=== PATIENT | male | born 1975 | race Two or more races ===

== ENCOUNTER → 2020-02-14 14:10 | Outpatient (BNVA) | payer OTHER, SELFPAY | PROVIDERS: PCP Internal Medicine; Referring Provider Internal Medicine; Visit Provider Surgery | DX: Z76.89 Persons encountering health services in other specified circumstances (principal) ==

== ENCOUNTER 2021-08-14 11:07 | Outpatient (REF) | payer OTHER, SELFPAY ==
[2021-08-14 11:20] LABS: MANUAL DIFF FLAG NO
[2021-08-14 11:46] LABS: Basophils Percent Auto 0.6 % (0-2); Eosinophils Absolute Auto 0.1 X10*3/uL (0.0-0.4); Eosinophils Percent Auto 1.7 % (0-4); Hematocrit 45.1 % (42.0-52.0); Hemoglobin 15.1 g/dl (14.0-18.0); Imm Gran Abs Auto 0.02 X10*3/uL (0.00-0.03); Imm Gran Pct Auto 0.3 % (0.0-0.4); Lymphocytes Absolute Auto 1.9 X10*3/uL (1.2-4.9); Lymphocytes Percent Auto 27.3 % (20-40); Mean Corpuscular HGB Conc 33.5 g/dl (31.0-36.0); Mean Corpuscular Volume 89.5 fL (80.0-98.0); Mean Platelet Volume 9.8 fL (9.4-12.4); Monocytes Absolute Auto 0.7 X10*3/uL (0.1-1.2); Monocytes Percent Auto 9.3 % (2-11); Neutrophils Absolute Auto 4.3 x10*3/uL (2.0-8.3); Neutrophils Percent Auto 60.8 % (45-73); Platelet Count 296 X10*3/uL (160-400); Red Blood Count 5.04 X10*6/uL (4.60-5.80); Red Cell Distribution Width 13.1 % (11.0-16.0); White Blood Count 7.1 X10*3/uL (4.8-10.8)
[2021-08-14 12:29] LABS: Alanine Aminotransferase 36 U/L (0-40); Albumin Level 4.4 g/dL (3.5-5.0); Alkaline Phosphatase 90 U/L (39-117); Anion Gap 10 (12-20); Aspartate Amino Transferase 24 U/L (5-37); Bilirubin Total 0.9 mg/dL (0.0-1.0); Blood Urea Nitrogen 10 mg/dL (9-16); Calcium 9.4 mg/dL (8.4-10.2); Carbon Dioxide 30 mmol/L (22-29); Chloride 103 mmol/L (96-108); Cholesterol 184 mg/dL; Estimated Glomerular Filt Rate > 60; Glucose Random 91 mg/dL (60-115); HDL Cholesterol 35 mg/dL; LDL Cholesterol Calculated 132 mg/dl; Sodium 139 mmol/L (135-145); Total Protein 7.6 g/dL (6.5-8.0); Triglycerides 88 mg/dL
== END 2021-08-14 11:08 | disposition home or self-care (01) ==
LOC: HO.LAB 11:07
PROVIDERS: PCP Internal Medicine; Visit Provider Internal Medicine
DX: Z00.00 Encounter for general adult medical examination without abnormal findings (principal); Z13.31 Encounter for screening for depression; M54.89 Other dorsalgia; R13.10 Dysphagia, unspecified
CPT/HCPCS: 36415; 80053; 80061; 85025

== ENCOUNTER 2022-08-16 15:19 | Outpatient (REF) | payer OTHER, SELFPAY ==
[2022-08-16 15:33] LABS: MANUAL DIFF FLAG NO
[2022-08-16 15:49] LABS: Basophils Percent Auto 0.7 % (0-2); Eosinophils Absolute Auto 0.1 X10*3/uL (0.0-0.4); Eosinophils Percent Auto 1.3 % (0-4); Hematocrit 44.6 % (42.0-52.0); Hemoglobin 14.9 g/dl (14.0-18.0); Imm Gran Abs Auto 0.02 X10*3/uL (0.00-0.03); Imm Gran Pct Auto 0.3 % (0.0-0.4); Lymphocytes Absolute Auto 1.8 X10*3/uL (1.2-4.9); Mean Corpuscular HGB Conc 33.4 g/dl (31.0-36.0); Mean Corpuscular Volume 89.9 fL (80.0-98.0); Mean Platelet Volume 9.8 fL (9.4-12.4); Monocytes Absolute Auto 0.6 X10*3/uL (0.1-1.2); Neutrophils Absolute Auto 3.7 x10*3/uL (2.0-8.3); Neutrophils Percent Auto 59.7 % (45-73); Platelet Count 288 X10*3/uL (160-400); Red Blood Count 4.96 X10*6/uL (4.60-5.80); Red Cell Distribution Width 13.6 % (11.0-16.0); White Blood Count 6.1 X10*3/uL (4.8-10.8)
[2022-08-16 16:15] LABS: Alanine Aminotransferase 40 U/L (0-40); Albumin Level 4.4 g/dL (3.5-5.0); Alkaline Phosphatase 91 U/L (39-117); Anion Gap 13 (12-20); Aspartate Amino Transferase 23 U/L (5-37); Bilirubin Total 0.8 mg/dL (0.0-1.0); Blood Urea Nitrogen 11 mg/dL (9-16); Calcium 9.3 mg/dL (8.4-10.2); Carbon Dioxide 27 mmol/L (22-29); Chloride 104 mmol/L (96-108); Cholesterol 202 mg/dL; Estimated Glomerular Filt Rate > 60; Glucose Random 89 mg/dL (60-115); HDL Cholesterol 37 mg/dL; LDL Cholesterol Calculated 147 mg/dl; Potassium 4.6 mmol/L (3.3-5.1); Sodium 139 mmol/L (135-145); Total Protein 7.1 g/dL (6.5-8.0); Triglycerides 93 mg/dL
== END 2022-08-16 15:20 | disposition home or self-care (01) ==
LOC: HO.LAB 15:19
PROVIDERS: PCP Internal Medicine; Visit Provider Internal Medicine
DX: Z00.00 Encounter for general adult medical examination without abnormal findings (principal); M54.9 Dorsalgia, unspecified; Z13.31 Encounter for screening for depression
CPT/HCPCS: 36415; 80053; 80061; 85025

== ENCOUNTER 2023-03-21 09:57 | Day surgery (SDC) | payer OTHER, SELFPAY ==
[2023-03-18 07:06] VITALS: BMI 30.7
[2023-03-21 10:49] VITALS: BP 128/79; PULSE 74; RESP 18; TEMP 36.6; O2SAT 99
[2023-03-21] MEDS: Lactated Ringers 1,000 ML 100 ML IVCONT (10:57)
--- NOTE | 2023-03-21 12:48 | P.BOP_ITS ---
Brief Operative Note Date of Service: 03/21/23 Pre-op diagnosis: Screening Post-op diagnosis: other (Diverticulosis) Procedure: Colonoscopy to the cecum and TI Surgeon: Dash Barajas MD Anesthesia: MAC Was an Neon Glass Bender used for this Procedure?: No Estimated blood loss (mL): 0 Pathology: none sent Condition: stable Disposition: PACU
[2023-03-21 12:50] VITALS: BP 120/62; PULSE 88; RESP 16; TEMP 36.4; O2SAT 99
[2023-03-21 13:05] VITALS: BP 131/74; PULSE 73; RESP 18; TEMP 36.4; O2SAT 98
--- NOTE | 2023-03-21 13:21 | HO.POSTANES ---
Post Anesthesia Evaluation Post Anesthesia Evaluation Date of Service: 03/21/23 Vital Signs: Vital Signs Temp Pulse Resp BP Pulse Ox O2 Del Method 03/21/23 13:05 97.5 F 73 18 131/74 98 Room Air 03/21/23 12:50 97.5 F 88 16 120/62 99 Room Air 03/21/23 10:49 97.9 F 74 18 128/79 99 Room Air Anesthesia: Monitored Mental Status: Awake Pain Control: Satisfactory Nausea/Vomiting: None Hydration: Adequate Anesthesia-Related Issues: No Anes. Related Issues
--- NOTE | 2023-03-23 10:50 | OP_ITS ---
DATE OF SERVICE: 03/21/2023 SURGEON: Dash Barajas MD INDICATIONS: The patient presents for evaluation of colorectal cancer screening. Full consent was obtained from him for this, including risks of bleeding and perforation. PREOPERATIVE DIAGNOSIS: Colorectal cancer screening. POSTOPERATIVE DIAGNOSIS: PROCEDURE PERFORMED: Colonoscopy to the cecum and terminal ileum. ESTIMATED BLOOD LOSS: COMPLICATIONS: ANESTHESIA: Monitored anesthesia care. ASSISTANTS: SPECIMENS: POSTOPERATIVE DIAGNOSES: Colorectal cancer screening, diverticulosis, internal hemorrhoids. DESCRIPTION OF PROCEDURE: The patient was placed in left lateral decubitus position. The digital rectal exam revealed no abnormalities. The Olympus video pediatric colonoscope was entered into the rectum and advanced easily to the cecum. Once in the cecum, I did identify normal-appearing cecal pouch with appendiceal orifice and a normal-appearing ileocecal valve. The terminal ileum was cannulated and appeared normal. Scope was withdrawn back in the colon. The entire cecum and ileocecal valve appeared normal. The scope was slowly withdrawn assessing all mucosal surfaces carefully. For the most part, preparation was very good throughout the colon but did require some irrigation and suctioning. I did not visualize any sign of polyps, colitis, nor angiodysplasia. There was a mild amount of sigmoid diverticulosis. In the rectum, scope was retroflexed visualizing internal hemorrhoids, but no other pathology. The rectal mucosa appeared normal. The scope was straightened and withdrawn from the patient. He tolerated the procedure well and was returned to recovery area in stable condition. IMPRESSION: 1. Diverticulosis. 2. Internal hemorrhoids. PLAN: Given the patient's negative exam and no family history, I would recommend a repeat colonoscopy in 10 years for further screening. He will otherwise see me on a p.r.n. basis. MD MERLYN Tobar/ROBERT / [phone]
== END 2023-03-21 13:50 | disposition home or self-care (01) ==
PROVIDERS: PCP Internal Medicine; Visit Provider Internal Medicine
PROC: 0DJD8ZZ Inspection of Lower Intestinal Tract, Via Natural or Artificial Opening Endoscopic (ICD-10-PCS; CPT 45378; principal; 2023-03-21 11:40)
DX: Z12.11 Encounter for screening for malignant neoplasm of colon (principal); K57.30 Diverticulosis of large intestine without perforation or abscess without bleeding; K64.8 Other hemorrhoids
CPT/HCPCS: 45378

== ENCOUNTER 2023-09-13 09:31 | Outpatient (REF) | payer OTHER, SELFPAY ==
[2023-09-13 09:55] LABS: MANUAL DIFF FLAG NO
[2023-09-13 10:43] LABS: Basophils Percent Auto 0.7 % (0-2); Eosinophils Absolute Auto 0.1 X10*3/uL (0.0-0.4); Eosinophils Percent Auto 1.9 % (0-4); Hemoglobin 15.4 g/dl (14.0-18.0); Lymphocytes Absolute Auto 2.3 X10*3/uL (1.2-4.9); Lymphocytes Percent Auto 37.9 % (20-40); Mean Corpuscular HGB Conc 33.5 g/dl (31.0-36.0); Mean Corpuscular Hemoglobin 30.4 pg (27.0-33.0); Mean Corpuscular Volume 90.9 fL (80.0-98.0); Mean Platelet Volume 9.7 fL (9.4-12.4); Monocytes Absolute Auto 0.5 X10*3/uL (0.1-1.2); Monocytes Percent Auto 7.6 % (2-11); Neutrophils Absolute Auto 3.1 x10*3/uL (2.0-8.3); Neutrophils Percent Auto 51.9 % (45-73); Platelet Count 307 X10*3/uL (160-400); Red Blood Count 5.06 X10*6/uL (4.60-5.80); Red Cell Distribution Width 13.8 % (11.0-16.0); White Blood Count 5.9 X10*3/uL (4.8-10.8)
[2023-09-13 11:30] LABS: Prostate Specific Antigen Scr 1.71 ng/mL (<0.05-4.0)
[2023-09-13 11:33] LABS: Alanine Aminotransferase 28 U/L (0-40); Albumin Level 4.4 g/dL (3.5-5.0); Alkaline Phosphatase 79 U/L (39-117); Anion Gap 13 (12-20); Aspartate Amino Transferase 19 U/L (5-37); Bilirubin Total 0.7 mg/dL (0.0-1.0); Blood Urea Nitrogen 9 mg/dL (9-16); Calcium 9.5 mg/dL (8.4-10.2); Carbon Dioxide 28 mmol/L (22-29); Chloride 104 mmol/L (96-108); Cholesterol 235 mg/dL (<200); Estimated Glomerular Filt Rate > 60; Glucose Random 91 mg/dL (60-115); HDL Cholesterol 42 mg/dL (>40); LDL Cholesterol Calculated 163 mg/dL (<100); Sodium 141 mmol/L (135-145); Total Protein 7.6 g/dL (6.5-8.0); Triglycerides 152 mg/dL (<150)
== END 2023-09-13 09:32 | disposition home or self-care (01) ==
LOC: HO.LAB 09:31
PROVIDERS: PCP Internal Medicine; Visit Provider Internal Medicine
DX: E78.2 Mixed hyperlipidemia (principal); M54.9 Dorsalgia, unspecified; N40.0 Benign prostatic hyperplasia without lower urinary tract symptoms; Z00.00 Encounter for general adult medical examination without abnormal findings; Z12.5 Encounter for screening for malignant neoplasm of prostate
CPT/HCPCS: 36415; 80053; 80061; 84153; 85025

== ENCOUNTER 2023-10-12 08:05 | Outpatient (REF) | payer OTHER, SELFPAY ==
[2023-10-12 09:58] LABS: Alanine Aminotransferase 23 U/L (0-40); Albumin Level 4.2 g/dL (3.5-5.0); Alkaline Phosphatase 88 U/L (39-117); Anion Gap 9 (12-20); Aspartate Amino Transferase 19 U/L (5-37); Bilirubin Total 0.4 mg/dL (0.0-1.0); Blood Urea Nitrogen 8 mg/dL (9-16); Calcium 8.9 mg/dL (8.4-10.2); Carbon Dioxide 29 mmol/L (22-29); Chloride 106 mmol/L (96-108); Cholesterol 206 mg/dL (<200); Estimated Glomerular Filt Rate > 60; Glucose Random 97 mg/dL (60-115); HDL Cholesterol 46 mg/dL (>40); LDL Cholesterol Calculated 142 mg/dL (<100); Potassium 3.9 mmol/L (3.3-5.1); Sodium 140 mmol/L (135-145); Total Protein 7.2 g/dL (6.5-8.0); Triglycerides 90 mg/dL (<150)
== END 2023-10-12 08:06 | disposition home or self-care (01) ==
LOC: HO.LAB 08:05
PROVIDERS: PCP Internal Medicine; Visit Provider Internal Medicine
DX: E78.00 Pure hypercholesterolemia, unspecified (principal)
CPT/HCPCS: 36415; 80053; 80061

== ENCOUNTER 2024-02-13 11:06 | Outpatient (REF) | payer OTHER, SELFPAY ==
[2024-02-13 12:46] LABS: Cholesterol 184 mg/dL (<200); HDL Cholesterol 43 mg/dL (>40); LDL Cholesterol Calculated 123 mg/dL (<100); Triglycerides 91 mg/dL (<150)
== END 2024-02-13 11:07 | disposition home or self-care (01) ==
LOC: HO.LAB 11:06
PROVIDERS: PCP Internal Medicine; Visit Provider Internal Medicine
DX: B35.3 Tinea pedis (principal); E78.00 Pure hypercholesterolemia, unspecified
CPT/HCPCS: 36415; 80061

== ENCOUNTER 2024-09-04 09:13 | Outpatient (REF) | payer OTHER, SELFPAY ==
--- OUTSIDE RECORDS SUMMARY | 2024-09-04 09:56 | XMS_ITS ---
Author Organization [facility] Address [address] [place] [address] Care Team Providers Care Faculty Head Name Role Phone Kami Tompkins Primary Care Provider Unavailab Dash Gutierres Unavailable [phone] REASON FOR VISIT screening Problems Problem Type SNOMED Code ICD Code Onset Dates Problem Status W/U Status Risk Notes Problem Diverticular disease of colon (910958630) Diverticulosis of large intestine without perforation or abscess without bleeding (K57.30) Active confirmed Encounters Encounter Location Date Provider Diagnosis [facility] [address], [place] [id number] 03/21/2023 Dash Barajas Encounter for scre ening colonoscopy Z12.11 ; Diverticulosis of large intestine without perforation or abscess without bleeding K57.30 and Other hemorrhoids K64.8 Assessments Encounter Date Diagnosis (ICD Code) Assessment Notes Treatment Notes Treatment Clinical Notes Section Notes 03/21/2023 Encounter for screening colonoscopy (ICD-10 - Z12.11) 03/21/2023 Diverticulosis of large intestine without perforation or abscess without bleeding (ICD-10 - K57.30) 03/21/2023 Other hemorrhoids (ICD-10 - K64.8) Plan Of Treatment No Information Progress Notes * VILLA ANGELB: 4 (48 yo M)Acc No.[id number]:03/21/2023 COLON WITH MAC Patient:?JEANNESEANJEFFY Provider:?Dash Barajas MD :1975???Age:47 Y???Sex:Male Ryan e:03/21/2023 Address:[address] [place] [address] Pcp:Kami Tompkins Subjective: * Chief Complaints: * ???1. Screening. * Medical History:? Objective: * Vitals:? Assessment: * Assessment: 1.?Encounter for screening c olonoscopy - Z12.11 (Primary)???2.?Diverticulosis of large intestine without perforation or abscess without bleeding - K57.30???3.?Other hemorrhoids - K64.8??? Plan: * Treatment: * Procedure Codes:?31896 DIAGN OSTIC COLONOSCOPY * * The named appointment provid er may or may not be the originator of this progress note, and it is not deemed complete until electronically signed by the appointment provider. Sign off status: Pending * Provider:?Dash Barajas MD Date:? [address]/Sandra/Maria Elenasmitting on:?09/04/2024 09:56 AM EDT
--- OUTSIDE RECORDS SUMMARY | 2024-09-04 09:57 | XMS_ITS ---
Author Organization [facility] Address [address] [place] [address] Care Team Providers Care Powered Bridge Specialist Name Role Phone Serinatatyana Kami Primary Care Provider UnavailDash Hernandez Unavailable [phone] Allergies No Known Allergies REASON FOR VISIT Patient presents today for SOMETHING ON RECTUM Medications Medication SIG (Take, Route, Frequency, Duration) Notes Start Date End Date Status Atorvastatin Calcium 40 MG TAKE 1 TABLET BY MOUTH EVERY DAY Oral for 90 Active Social History Tobacco Use: Social History Observation Description Date Details (start date - stop date) Never Smoker NA - NA Tobacco Use/Smoking Question Answer Notes Patient is a nonsmoker Alcohol Screen Question Answer Notes Did you have a drink contain ing alcohol in the past year? Yes How often did you have a dri nk containing alcohol in the past year? Monthly or less (1 point) How many drinks did you have on a typical day when you were drinking in the past year? 1 or 2 drinks (0 point) How often did you have 6 or more drinks on one occasion in the past year? Never (0 point) Points 1 Interpretation Negative Section Notes: Patient has an occasional ci gar; occasional alcohol Problems Problem Type SNOMED Code ICD Code Onset Dates Problem Status W/U Status Risk Notes Problem Hemorrhoids (17529822) Hemorrhoids (K64.9) Active confirmed Vital Signs Temperature 97.7 degrees Fahrenheit 11/01/19 24 Blood pressure systolic 000 mm Hg 11/01/19 24 Blood pressure diastolic 00 mm Hg 024 Height 66 in 11/01/2023 Weight 183 lb 4 oz lbs 11/01/2023 BMI 29.57 kg/m2 11/01/2023 Encounters Encounter Location Date Provider Diagnosis [facility] [address] [place] [address] 11/01/2023 Dash Jenn Hemorrhoids K64.9 Assessments Encounter Date Diagnosis (ICD Code) Assessment Notes Treatment Notes Treatment Clinical Notes Section Notes 11/01/2023 Hemorrhoids (ICD-10 - K64.9) Continue the hemorrhoid cream and Aloe wipes. Avoid constipation and straining with BM's. See Dr. Zoran Belle in [place] for surgical opinion if the hemorrhoids keep bothering you. Repeat colonoscopy in 2032 Overall, Merrick appears quite well. I did review his negative colonoscopy with him and advised him of the need for a followup colonoscopy in 2032 for further screening. In regard to his hemorrhoids, I advised him that his treatment regimen is working very well for him at this time and he could simply continue that either long-term or on a p.r.n. basis. I advised him that it is important to stay on a healthy diet and maintain a good bowel regimen so as to avoid any constipation and straining with bowel movements. I don't think he needs any intervention at this time given his current clinical history. However, I did give him the name and phone number for Dr. Belle in the event he develops recurrent painful hemorrhoids that do not respond promptly to medical therapy. I did advise Merrick to contact me on a p.r.n. basis. He was very comfortable with this plan. Thank you again for allowing me to participate in Merrick's care. I shall continue to keep you advised of his progress. Plan Of Treatment Treatment Notes Assessment Notes Hemorrhoids Continue the hemorrhoid cream and Aloe wipes. Avoid constipation and straining with BM's. See Dr. Zoran Belle in [place] for surgical opinion if the hemorrhoids keep bothering you. Repeat colonoscopy in 2032 Next Appt Details Follow Up: prn, Reason: Progress Notes * MERRICK ANGELDOB: 4 (48 yo M)Acc No.[id number]:11/01/2023 Progress Notes Patient:?MERRICK ANGEL Provider:?Dash Barajas MD :1975???Age:48 Y???Sex:Male Ryan e:11/01/2023 Address:[address] [place] [address] , [place] [address] Pcp:Kami Tompkins Subjective: * Chief Complaints: * ???Patient presents today fo r SOMETHING ON RECTUM * HPI: ???incontinence:? I saw Merrick in the office today for evaluation of some hemorrhoidal issues. ?I last saw Merrick in March of 2023, at which time he underwent a negative screening colonoscopy other than the finding of some internal hemorrhoids. He has been feeling well but about a month ago developed some painful hemorrhoids. He denies any associated significant constipation or straining with bowel movements at that time. Other than discomfort he was not having any bleeding. He did show me a picture today of what certainly appears to be 2 swollen hemorrhoids from about a month ago. He treated himself with some qwmr-wzq-wumntot hemorrhoidal cream and some aloe wipes. He has actually continued this daily regimen. He reports that things are significantly improved. He is not having any discomfort and continues with normal bowel movements. He enjoys a good appetite, without any significant heartburn or dysphagia. He denies abdominal pain. There is no known family history of colorectal cancer. * ROS:?General/Constitutional:?Change in appetite?denies.?Chills?denies.?Fatigue?denies.?Ophthalmologic:?Comments?all negative.?ENT:?Comments?all negative.?Respiratory:?hemoptysis?denies.?Cough?denies.?Cardiovascular:?Chest pain?denies.?Orthopnea?denies.?Gastrointestinal:?Comments?See HPI for details.?Genitourinary:?Hematuria?denies.?Dysuria?denies.?Musculoskeletal:?Painful joints?denies.?Weakness?denies.?Skin:?Itching?denies.?Rash?denies.?Neurologic:?Headache?denies.?Seizures?denies.?Psychiatric:?Comments?all negative.? * Medical History:? * Surgical History:?Right shou lder * Hospitalization/Major Diagno stic Procedure:?No Hospitalization History. * Family History:?Father: dece ased.?Mother: alive.? No known hx of colon cancer. No family history of liver cancer. * Social History:?Tobacco Use:?Tobacco Use/Smoking?Patient is a?nonsmoker.?Drugs/Alcohol:?Alcohol Screen?Did you have a drink containing alcohol in the past year??Yes,?How often did you have a drink containing alcohol in the past year??Monthly or less (1 point), How many drinks did you have on a typical day when you were drinking in the past year??1 or 2 drinks (0 point),?How often did you have 6 or more drinks on one occasion in the past year??Never (0 point),?Points?1,?Interpretation?Negative.?Miscellaneous:?Marital status: single. 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 ???Patient has an occasional cigar; occasional alcohol. * Medications:?TakingAtorvasta tin Calcium 40 MG Tablet TAKE 1 TABLET BY MOUTH EVERY DAY Oral Medication List reviewed and reconciled with the patientTaking Atorvastatin Calcium 40 MG Tablet TAKE 1 TABLET BY MOUTH EVERY DAY Oral Medication List reviewed and reconciled with the patient * Allergies:?N.K.D.A.yes[Aller gies Verified] Objective: * Vitals:?Wt: 183 lb 4 oz, Ht: 66 in, BMI:29.57 Index, BP: 000/00 mm Hg, Temp: 97.7. * Examination: ???General Examination: ?GENERAL APPEARANCE:?pleasant, well nourished, well developed, in no acute distress.?EYES:?sclera non-icteric.?ORAL CAVITY:?mucosa moist.?NECK/THYROID:?no cervical lymphadenopathy, neck supple.?SKIN:?nonjaundiced, no spider angiomata.?HEART:?S1, S2 normal.?LUNGS:?clear to auscultation bilaterally.?ABDOMEN:?normal bowel sounds, no guarding or rigidity, no guarding or rigidity, no masses palpable, soft, nontender, nondistended.?RECTAL EXAM:?Deferred given the picture he showed me?and the fact that his symptoms have significantly improved ?.?EXTREMITIES:?no edema.?NEUROLOGIC:?alert and oriented.? Assessment: * Assessment: 1.?Hemorrhoids - K64.9 (Prim sandy)? Overall, Merrick appears qu ite well. I did review his negative colonoscopy with him and advised him of the need for a followup colonoscopy in 2032 for further screening. In regard to his hemorrhoids, I advised him that his treatment regimen is working very well for him at this time and he could simply continue that either long- term or on a p.r.n. basis. I advised him that it is important to stay on a healthy diet and maintain a good bowel regimen so as to avoid any constipation and straining with bowel movements. I don't think he needs any intervention at this time given his current clinical history. However, I did give him the name and phone number for Dr. Belle in the event he develops recurrent painful hemorrhoids that do not respond promptly to medical therapy. I did advise Merrick to contact me on a p.r.n. basis. He was very comfortable with this plan. Thank you again for allowing me to participate in Merrick's care. I shall continue to keep you advised of his progress. Plan: * Treatment: * Procedure Codes:?3017F COLOR ECTAL CA SCREEN DOC [id number] TOBACCO [id number] BP SCR NOT PRFRM REC REASON NOS * Preventive Medicine:? ??Counseling:?Care goal follow-up plan:?Above Normal BMI Follow-up?Giving encouragement to exercise,?BMI management provided?Yes.? * Follow Up:?prn * * Sign off status: Completed true * Provider:?Dash Barajas MD Date:? [address]/Sandra/Ke on:?09/04/2024 09:56 AM EDT History and Physical Notes * HPI (History of Present Illness) Category Sub-Category Detail Notes Category Not es incontinence I saw Merrick in the office today for evaluation of some hemorrhoidal issues. I last saw Merrick in March of 2023, at which time he underwent a negative screening colonoscopy other than the finding of some internal hemorrhoids. He has been feeling well but about a month ago developed some painful hemorrhoids. He denies any associated significant constipation or straining with bowel movements at that time. Other than discomfort he was not having any bleeding. He did show me a picture today of what certainly appears to be 2 swollen hemorrhoids from about a month ago. He treated himself with some xxkd-lej-rwnmfil hemorrhoidal cream and some aloe wipes. He has actually continued this daily regimen. He reports that things are significantly improved. He is not having any discomfort and continues with normal bowel movements. He enjoys a good appetite, without any significant heartburn or dysphagia. He denies abdominal pain. There is no known family history of colorectal cancer. Examination Category Sub-Category Detail Notes Category Not es General Examination GENERAL APPEARANCE: pleasant , well nourished, well developed, in no acute distress EYES: sclera non-icteric NECK/THYROID: no cervical lymphade nopathy, neck supple HEART: S1, S2 normal LUNGS: clear to auscultatio n bilaterally ABDOMEN: normal bowel sounds, no guarding or rigidity, no guarding or rigidity, no masses palpable, soft, nontender, nondistended NEUROLOGIC: alert and oriented SKIN: nonjaundiced, no spi alis angiomata EXTREMITIES: no edema RECTAL EXAM: Deferred given the p icture he showed me and the fact that his symptoms have significantly improved ORAL CAVITY: mucosa moist
--- OUTSIDE RECORDS SUMMARY | 2024-09-04 09:57 | XMS_ITS | Patient Health Record ---
Author Organization [facility] Address [address] [place] [address] Care Team Providers Care Lumber Sorter Name Role Phone Kami Tompkins Primary Care Provider UnavailDash Hernandez Unavailable [phone] Allergies No Known Allergies Reason For Referral No Information Medications Medication SIG (Take, Route, Frequency, Duration) Notes Start Date End Date Status Atorvastatin Calcium 40 MG TAKE 1 TABLET BY MOUTH EVERY DAY Oral for 90 Active Immunizations Vaccine Route Administration Date Status Comme nts Influenza Unknown 04/05/2023 Administered Influenza Unknown 12/01/2021 Refused Social History Tobacco Use: Social History Observation [...] has an occasional ci gar; occasional alcohol Patient has an occasional ci gar; occasional alcohol Patient has an occasional ci gar; occasional alcohol Problems Problem Type SNOMED Code ICD Code Onset Dates Problem Status W/U Status Risk Notes Problem [id number] Colon cancer screening (Z12.11) Active confirmed Problem Hemorrhoids (76269277) Hemorrhoids (K64.9) Active confirmed Problem Screening for malignant neoplasm of colon (286289937) Encounter for screening for malignant neoplasm of colon (Z12.11) Active confirmed Problem Diverticular disease of colon (046474659) Diverticulosis of large intestine without perforation or abscess without bleeding (K57.30) Active confirmed Problem Dysphagia (56806230) Dysphagia (R13.10) Active confirmed Problem [id number] Pre-procedural examination (Z01.818) Active confirmed Vital Signs Temperature 97.7 degrees Fahrenheit 11/01/2023 Blood pressure diastolic 00 mm Hg 11/01/2023 Height 66 in 11/01/2023 Blood pressure systolic 000 mm Hg 11/01/2023 Weight 183 lb 4 oz lbs 11/01/2023 BMI 29.57 kg/m2 11/01/2023 Encounters Encounter Location Date Provider Diagnosis [facility] [address] [place] [phone] 11/01/2023 Dash Barajas Hemorrhoids K64.9 [facility] [address] [place] [phone] 11/01/2023 Dash Barajas Assessments Encounter Date Diagnosis (ICD Code) Assessment Notes Treatment Notes Treatment Clinical Notes Section Notes 11/01/2023 Hemorrhoids (ICD-10 - K64.9) Continue the hemorrhoid cream and Aloe wipes. Avoid constipation and straining with BM's. See Dr. Zoran Belle in [place] for surgical opinion if the hemorrhoids keep [...] advised of his progress. Plan Of Treatment Future Test Test Name Order Date UPPER GI ENDOSCOPY B[place] DILATION OF ESOPH 12/01/2021 COLONOSCOPY 12/01/2021 COLONOSCOPY 12/28/2022 Insurance Providers Payer Name Payer Address Payer Phone Subscriber Number Group Number Insured Name Patient Relationship to Insured Coverage Start Date Coverage End Date [employer] [address] [place] [phone] [id number] JEANNE MERRICK Self - patient is the insured Medical (General) History Medical History History ICD Code Denies [place],DM,CVA,Lung disease,renal dise ase Negative screening colonoscopy in 3 Surgical History Surgery Date(Month/Year) Right shoulder
--- OUTSIDE RECORDS SUMMARY | 2024-09-04 09:57 | XMS_ITS ---
Author Organization [facility] Address [address] [place] [phone] Care Team Providers Care Pathology Collector Name Role Phone Turner Kaim Primary Care Provider Unavailab Dash Gutierres [phone] REASON FOR VISIT no show Encounters Encounter Location Date Provider Diagnosis [facility] [address] [place] [address] 11/01/2023 Dash Barajas Plan Of Treatment No Information Progress Notes * JEANNE, VILLAB: 4 (48 yo M)Acc No.[id number]:11/01/2023 Patient:?JEFFY ANGEL :1975???Age:48 Y???Sex:Male Address:[address] [place] [address] , [place], [address] * true * Date:? Generated for Martinei yenifer/Sandra/eTransmitting on:?09/04/2024 09:56 AM EDT
[2024-09-04 10:21] LABS: Alanine Aminotransferase 36 U/L (0-40); Albumin Level 4.3 g/dL (3.5-5.0); Alkaline Phosphatase 89 U/L (39-117); Anion Gap 10 (12-20); Aspartate Amino Transferase 23 U/L (5-37); Bilirubin Total 0.4 mg/dL (0.0-1.0); Blood Urea Nitrogen 17 mg/dL (9-16); Calcium 9.1 mg/dL (8.4-10.2); Carbon Dioxide 29 mmol/L (22-29); Chloride 106 mmol/L (96-108); Cholesterol 206 mg/dL (<200); Estimated Glomerular Filt Rate > 60; Glucose Random 101 mg/dL (60-115); HDL Cholesterol 42 mg/dL (>40); LDL Cholesterol Calculated 135 mg/dL (<100); Potassium 4.5 mmol/L (3.3-5.1); Sodium 140 mmol/L (135-145); Total Protein 7.2 g/dL (6.5-8.0); Triglycerides 149 mg/dL (<150)
[2024-09-04 10:39] LABS: Prostate Specific Antigen Scr 1.13 ng/mL (<0.05-4.0)
== END 2024-09-04 09:14 | disposition home or self-care (01) ==
LOC: HO.LAB 09:13
PROVIDERS: PCP Internal Medicine; Visit Provider Internal Medicine
DX: E78.00 Pure hypercholesterolemia, unspecified (principal); Z12.5 Encounter for screening for malignant neoplasm of prostate; M54.50 Low back pain, unspecified; N52.1 Erectile dysfunction due to diseases classified elsewhere; Z68.29 Body mass index [BMI] 29.0-29.9, adult
CPT/HCPCS: 36415; 80053; 80061; 84153

== ENCOUNTER 2025-05-06 08:03 | Outpatient (REF) | payer OTHER, SELFPAY ==
--- OUTSIDE RECORDS SUMMARY | 2025-05-06 08:09 | XMS_ITS | Clinical Summary ---
Author Organization [facility] Address [address] [place] [phone] Phone Care Team Providers Care Billiard Player Name Role Phone Physician, Pcp Unknown Primary Care Provider Jocelynn vailable Allergies No known active allergies Social History Tobacco Use Types Packs/Day Years Used Date Smoking Tobacco: Never Smokeless Tobacco: Never Tobacco Cessation:Counseling Given: Not Answered Sex and Gender Information Value Date Recorded Sex Assigned at Not on file Legal Sex Male 9:08 AM EST Gender Identity Not on file Sexual Orientation Not on file Last Filed Vital Signs Vital Sign Reading Time Taken Comments Blood Pressure 112/66 11/22/2024 1:32 AM EDT Pulse 87 11/22/2024 1:32 AM EDT Temperature 36.8 C (98.3 F) 11/22/2024 1:32 AM EDT Respiratory Rate 18 11/22/2024 1:32 AM EDT Oxygen Saturation 100% 11/22/2024 1:32 AM EDT Inhaled Oxygen Concentration - - Weight 81.6 kg (180 lb) 11/22/2024 1:32 AM EDT Height 167.6 cm (5' 6 ) 11/22/2024 1:32 AM EDT Body Mass Index 29.05 11/22/2024 1:32 AM EDT Plan of Treatment Health Maintenance Due Date Last Done Comments Colorectal Cancer Screening: Colonoscopy 1975 DTaP,Tdap,and Td Vaccines (1 - Tdap) 1992 Hepatitis B Vaccines (1 of 3 - 19+ 3-dose series) 1992 Pneumococcal Vaccine: 50+ Ye ars (1 of 1 - PCV) 09/08/2023 Zoster Vaccines (1 of 2) 09/08/2023 Depression Screening 05/16/2024 Cholesterol Screening (Lipid Panel) 11/22/2024 HIV Screening 11/22/2024 Hepatitis C Screening 11/22/2024 Social Influencers of Health Screening 11/22/2024 COVID-19 Vaccine (1 - 2024-2 6 season) 2025 Influenza Vaccine (#1) 2025 RSV Immunization Adult Patie nts (1 - 1-dose 75+ series) 2048 HIB Vaccines Aged Out No longer eligi ble based on patient's age to complete this topic HPV Vaccines Aged Out No longer eligi ble based on patient's age to complete this topic Hepatitis A Vaccines Aged Out No long er eligible based on patient's age to complete this topic IPV Vaccines Aged Out No longer eligi ble based on patient's age to complete this topic MMR Vaccines Aged Out No longer eligi ble based on patient's age to complete this topic Meningococcal ACWY Vaccine Aged Out N o longer eligible based on patient's age to complete this topic Meningococcal B Vaccine Aged Out No l onger eligible based on patient's age to complete this topic RSV Immunization Patients Un alis 20 months Aged Out No longer eligible b ased on patient's age to complete this topic Varicella Vaccines Aged Out No longer eligible based on patient's age to complete this topic Insurance [facility] [address] [place] [address] Care Teams Billiard Player Relationship Specialty Start Date End Date Physician, Pcp Unknown PCP - General 11/22/24
--- OUTSIDE RECORDS SUMMARY | 2025-05-06 08:09 | XMS_ITS | Patient Health Record ---
Author Organization [facility] Address [address] [place] [id number] Care Team Providers Care [employer] Stitcher Name Role Phone Kami Tompkins Primary Care Provider UnavailDash Hernandez Unavailable [phone] Allergies No Known Allergies Reason For Referral No Information Medications Medication SIG (Take, Route, Frequency, Duration) Notes Start Date End Date Status Atorvastatin Calcium 40 MG Tablet TAKE 1 TABLET BY MOUTH EVERY DAY Oral; Duration: 90 Active Immunizations Vaccine Route Administration Date Status Comme nts Influenza Unknown 12/01/2021 Refused Influenza Unknown 04/05/2023 Administered Social History Tobacco Use: Social History Observation Description Date Details (start date - stop date) Never Smoker NA - NA Social History Drugs/Alcohol: Social Info Question Answer Notes Alcohol Screen Did you have a drink containing alcohol in the past year? Yes How often did you have a drink containing alcohol in the past year? Monthly or less (1 point) How many drinks did you have on a typical day when you were drinking in the past year? 1 or 2 drinks (0 point) How often did you have 6 or more drinks on one occasion in the past year? Never (0 point) Points 1 Interpretation Negative Tobacco Use: Social Info Question Answer Notes Tobacco Use/Smoking Patient is a nonsmoker Additional Details Category Social Info Options Details Miscellaneous: Marital status: single Occupation: Dealer at [employer] Section Notes: Patient has an occasional ci gar; occasional alcohol Patient has an occasional ci gar; occasional alcohol Patient has an occasional ci gar; occasional alcohol Problems Problem Type SNOMED Code ICD Code Onset Dates Problem Status W/U Status Risk Notes Problem Colon cancer screening (676868638) Colon cancer screening (Z12.11) Active confirmed Problem Hemorrhoids (06924325) Hemorrhoids (K64.9) Active confirmed Problem Screening for malignant neoplasm of colon (977956720) Encounter for screening for malignant neoplasm of colon (Z12.11) Active confirmed Problem Diverticular disease of colon (559174533) Diverticulosis of large intestine without perforation or abscess without bleeding (K57.30) Active confirmed Problem Dysphagia (07893010) Dysphagia (R13.10) Active confirmed Problem Pre-procedure evaluation check (467684517) Pre-procedural examination (Z01.818) Active confirmed Plan Of Treatment Future Test Test Name Order Date UPPER GI ENDOSCOPY BALLOOON DILATION OF ESOPH 12/01/2021 COLONOSCOPY 12/01/2021 COLONOSCOPY 12/28/2022 Insurance Providers Payer Name Payer Address Payer Phone Subscriber Number Group Number Insured Name Patient Relationship to Insured Coverage Start Date Coverage End Date [facility] [address] [place] [phone] [id number] JEFFY ANGEL Self - patient is the insured Medical (General) History Medical History History ICD Code Denies IA,DM,CVA,Lung disease,renal dise ase Negative screening colonoscopy in 3 Surgical History Surgery Date(Month/Year) Right shoulder
[2025-05-06 09:21] LABS: Alanine Aminotransferase 26 U/L (0-40); Albumin Level 4.6 g/dL (3.5-5.0); Alkaline Phosphatase 99 U/L (39-117); Anion Gap 12 (12-20); Aspartate Amino Transferase 34 U/L (5-37); Blood Urea Nitrogen 13 mg/dL (9-16); Calcium 8.8 mg/dL (8.4-10.2); Carbon Dioxide 25 mmol/L (22-29); Chloride 107 mmol/L (96-108); Cholesterol 182 mg/dL (<200); Estimated Glomerular Filt Rate > 60; HDL Cholesterol 38 mg/dL (>40); Potassium 3.9 mmol/L (3.3-5.1); Sodium 140 mmol/L (135-145); Total Protein 7.3 g/dL (6.5-8.0); Triglycerides 114 mg/dL (<150)
== END 2025-05-06 08:04 | disposition home or self-care (01) ==
LOC: HO.LAB 08:03
PROVIDERS: PCP Internal Medicine; Visit Provider Internal Medicine
DX: Z00.00 Encounter for general adult medical examination without abnormal findings (principal); E78.00 Pure hypercholesterolemia, unspecified; M51.16 Intervertebral disc disorders with radiculopathy, lumbar region; Z72.0 Tobacco use
CPT/HCPCS: 36415; 80053; 80061